=== PATIENT | male | born 1960 | race Caucasian/White ===

== ENCOUNTER 2017-12-12 20:02 | Emergency (ER) | payer BC ==
[2017-12-12 20:11] VITALS: BP 175/112; PULSE 97; RESP 20; TEMP 97.7
[2017-12-12] MEDS ORDERED: ORPHENADRINE 30 MG/ML 2 ML VIAL IM STA (20:28)
[2017-12-12] MEDS ORDERED: HYDROcodone/APAP 5-325MG 1 EACH TAB PO STA (20:28)
[2017-12-12] MEDS ORDERED: KETOROLAC 60 MG/2 ML VIAL IM STA (20:28)
--- NOTE | 2017-12-12 20:36 | ED ---
Back Pain HPI - General Chief Complaint: Back Pain/Injury Stated Complaint: back pain Time Seen by Provider: 12/12/17 20:14 Source: patient Limitations: no limitations - History of Present Illness Initial Comments: 57-year-old male patient presents to the emergency department today for evaluation of lower back pain and left flank pain. Patient states that he has been having trouble with his back for the last few months. States that he is doctor is treating him for a possible herniated disc and has ordered an MRI. Patient states that the MRI appointment is not until December 26. He is taking ibuprofen and prednisone without much relief. He states that the pain radiates into his buttocks and into his hips. He denies any numbness or tingling in his legs. Denies any saddle anesthesia. Denies any loss of bowel or bladder control. He states that the pain is so bad today that it is causing him to vomit. He denies any abdominal pain with this. Denies any chest pain or shortness of breath. Denies any cough or congestion. Patient denies any recent rash, fever, chills, shortness breath, diarrhea, constipation, dizziness, weakness, hematuria, dysuria, urinary urgency, urinary frequency, headache, visual changes, or any other complaints. - Related Data Home Medications Medication Instructions Recorded Confirmed Aspirin EC [Ecotrin Low Dose] 81 mg PO DAILY 09/15/17 09/15/17 Enalapril [Vasotec] 10 mg PO DAILY 09/15/17 09/15/17 Previous Rx's Medication Instructions Recorded Diazepam [Valium] 5 mg PO BID #6 tab 09/15/17 HYDROcodone/APAP 5-325MG [[place] 1 - 2 tab PO Q6HR PRN #14 tab 09/15/17 5-325] Hydrocodone/Acetaminophen [[place] 1 tab PO Q6HR PRN #20 tab 12/12/17 5-325] Allergies Allergy/AdvReac Type Severity Reaction Status Date / Time No Known Allergies Allergy Verified 12/12/17 20:11 Review of Systems ROS Statement: Those systems with pertinent positive or pertinent negative responses have been documented in the HPI. ROS Other: All systems not noted in ROS Statement are negative. Past Medical History Past Medical History: Hypertension History of Any Multi-Drug Resistant Organisms: None Reported Past Surgical History: Hernia Repair Additional Past Surgical History / Comment(s): nasal surgery Past Psychological History: No Psychological Hx Reported Smoking Status: Former smoker Past Alcohol Use History: Occasional Past Drug Use History: None Reported General Exam Limitations: no limitations General appearance: alert, in no apparent distress, other (This is a well- developed, well-nourished adult male patient in mild distress related to pain. Vital signs upon presentation are temperature 97.7F, pulse 97, respirations 20 , blood pressure 175/112, pulse ox 97% on room air.) Eye exam: Present: normal appearance, PERRL, EOMI. Absent: scleral icterus, conjunctival injection, periorbital swelling ENT exam: Present: normal exam, normal oropharynx, mucous membranes moist Respiratory exam: Present: normal lung sounds bilaterally. Absent: respiratory distress, wheezes, rales, rhonchi, stridor Cardiovascular Exam: Present: regular rate, normal rhythm, normal heart sounds. Absent: systolic murmur, diastolic murmur, rubs, gallop, clicks GI/Abdominal exam: Present: soft, normal bowel sounds. Absent: distended, tenderness, guarding, rebound, rigid Extremities exam: Present: normal inspection, full ROM, normal capillary refill. Absent: tenderness, pedal edema, joint swelling, calf tenderness Back exam: Present: normal inspection. Absent: tenderness, vertebral tenderness Neurological exam: Present: alert, oriented X3, CN II-XII intact Psychiatric exam: Present: normal affect, normal mood Skin exam: Present: warm, dry, intact, normal color. Absent: rash Course Vital Signs 12/12/17 20:07 Temperature 97.7 F Pulse Rate 97 Respiratory 20 Rate Blood Pressure 175/112 O2 Sat by Pulse 97 Oximetry Medical Decision Making - Medical Decision Making 57-year-old male patient presented to the emergency department today for evaluation of lower back pain. Patient states that he has been worsening over the last few weeks. He states he does follow with a back specialist and is most have an MRI. Physical examination is unremarkable. Patient is neurologically intact. He has no red flag symptoms. We did give him IM injections of pain medicine here and checked his urine to rule out evidence of kidney stone. Urinalysis was negative, no evidence of blood. Patient symptoms are improving prior to discharge. We will discharge to follow-up with his primary care physician as well as his back specialist as soon as possible. He is instructed to return here immediately for any new, worsening, or concerning symptoms. He verbalizes understanding and agrees this plan. - Lab Data Lab Results 12/12/17 Range/Units 21:06 Urine Color Light Yellow Urine Appearance Clear (Clear) Urine pH 5.5 (5.0-8.0) Ur Specific [place] 1.007 (1.001-1.035) Urine Protein Negative (Negative) Urine Glucose (UA) Negative (Negative) Urine Ketones Negative (Negative) Urine Blood Negative (Negative) Urine Nitrite Negative (Negative) Urine Bilirubin Negative (Negative) Urine Urobilinogen <2.0 (<2.0) mg/dL Ur Leukocyte Esterase Negative (Negative) Disposition Clinical Impression: Low back pain Disposition: HOME SELF-CARE Condition: Good Instructions: Acute Low Back Pain (ED) Additional Instructions: Take medications as directed. Apply warm heat to the low back 20 minutes at a time release 4 times daily. Follow-up with your Back Specialist as soon as possible. Return here immediately for any new, worsening, or concerning symptoms. Prescriptions: Hydrocodone/Acetaminophen [[place] 5-325] 1 tab PO Q6HR PRN #20 tab PRN Reason: Pain Referrals: Nonstaff,Physician [Primary Care Provider] - 1-2 days Time of Disposition: 21:27
[2017-12-12 21:19] LABS: Appearance,Urine Clear (Clear); Bilirubin,Urine Negative (Negative); Blood,Urine Negative (Negative); Color,Urine Light Yellow; Glucose,Urine (UA) Negative (Negative); Ketones,Urine Negative (Negative); Leukocyte Esterase,Urine Negative (Negative); Nitrite,Urine Negative (Negative); PH, Urine 5.5 (5.0-8.0); Protein,Urine Negative (Negative); Specific Gravity,Urine 1.007 (1.001-1.035); Urobilinogen,Urine <2.0 mg/dL (<2.0)
== END 2017-12-12 21:34 | disposition home or self-care (01) ==
LOC: EC 20:02
DX: M54.5 Low back pain (principal); R10.9 Unspecified abdominal pain; R11.10 Vomiting, unspecified; I10 Essential (primary) hypertension; Z87.891 Personal history of nicotine dependence; Z79.82 Long term (current) use of aspirin; Z79.899 Other long term (current) drug therapy
CPT/HCPCS: 81003; 99283; 96372 ×2; J2360; J1885

== ENCOUNTER → 2018-06-08 | Outpatient (CLI) | payer BC ==
--- NOTE | 2018-06-08 11:56 | CT ---
EXAMINATION TYPE: CT thoracic spine wo con DATE OF EXAM: 06/08/2018 COMPARISON: None HISTORY: Back pain post surgery in February. CT DLP: 1023 mGycm Automated exposure control for dose reduction was used. CT scan performed through the thoracic spine FINDINGS: Lack of intravenous contrast could compromise sensitivity. Postop changes are noted status post posterior fusion at T10-T12. There are cystic changes present al vinod the expected level of the posterior elements, right pedicle of T11. Question some local graft mat erial is present posteriorly along the course of the posterior fixation rods. There are susceptibilit y artifacts present due to the fixation hardware. Laminectomy change present at T11. Transpedicular s crews present at T12 and T10, no evident spinal stenosis. There is calcific or ossific density presen t along the posterior aspect at T11 and epidural region extending from posterior aspect of T10 to the inferior margin of the posterior aspect of T11 thought to cause some local mass effect on the anteri or aspect of the thecal sac, likely epidural in location, some calcification or ossification also pre sent along the disc space T10-11. Vertebral body alignment and bone mineralization maintained. Posterior to the T6-7 disc space there is also ossific density causing mass effect on the thecal sac, moderate spinal stenosis. Mild spinal curvature noted incidentally. Coronary artery calcification noted incidentally. IMPRESSION: POSTOP CHANGES DESCRIBED WITH ADDITIONAL FINDINGS ABOVE, EPIDURAL OSSIFICATION OR CALCIFICATION AT THE SURGICAL SITE WELL PROBABLE HYPERTROPHIC CHANGE AT THE POSTERIOR ASPECT OF THE DISC SPACE T6-7 POSSIBLY CAUSING SOME SPINAL STENOSIS AT THIS LEVEL. ADDITIONAL FINDINGS ABOVE.
== END | disposition home or self-care (01) ==
LOC: RADCTMAIN 08:16
PROVIDERS: ATTEND Orthopaedic Surgery Orthopaedic Surgery of the Spine
DX: M21.372 Foot drop, left foot (principal); M48.04 Spinal stenosis, thoracic region; Z98.890 Other specified postprocedural states
CPT/HCPCS: 72128

== ENCOUNTER → 2020-12-19 | Outpatient (CLI) | payer MEDICARE ==
--- NOTE | 2020-12-19 22:47 | MR ---
EXAMINATION TYPE: MR lumbar spine wo con DATE OF EXAM: 12/19/2020 COMPARISON: CT thoracic spine 06/08/2018 HISTORY: Reoccuring back pain for 2 years after T10-T12 fusion. TECHNIQUE: Multiplanar, multisequence images of the lumbar spine were acquired. L1-L2: Normal disc appearance without desiccation. No herniation, protrusion or disc bulging. No ca nal stenosis is present. Foramina are patent bilaterally. L2-L3: Normal disc appearance without desiccation. No herniation, protrusion or disc bulging. No ca nal stenosis is present. Foramina are patent bilaterally. L3-L4: A yellow ascitic thousand average 6 L4-L5: Posterior broad-based disc bulge contacts anterior thecal sac. Facet arthropathy with hypertro phy ligamentum flavum is present. Increased signal posterior aspect of the disc consistent with small annular tear. L5-S1: Minimal posterior disc bulge noted. There is facet arthropathy change. Lumbar segments are intact. No paraspinal masses are identified. Conus medullaris has a normal appe arance. Incidental note made of hardware at T10-T12 due to posterior fusion. Lumbar vertebral bodies show preserved height and alignment. There is multilevel spondylosis with endplate discogenic marrow signal change. Probable hemangioma present within the L5 vertebral body, L4 vertebral body. Loss of d isc height signal present intervertebral levels compatible disc desiccation and degenerative disc dis ease. No significant foraminal encroachment or spinal stenosis. IMPRESSION: Degenerative disc disease, facet arthropathy, postop changes, no significant spinal stenosis or signi ficant foraminal encroachment
== END ==
LOC: RADMRIMAIN 20:05
PROVIDERS: ATTEND Orthopaedic Surgery Orthopaedic Surgery of the Spine
DX: M51.36 Other intervertebral disc degeneration, lumbar region (principal)
CPT/HCPCS: 72148

== ENCOUNTER → 2021-02-13 | Outpatient (CLI) | payer MEDICARE ==
--- NOTE | 2021-02-14 02:50 | MR ---
EXAMINATION TYPE: MR thoracic spine wo/w con DATE OF EXAM: 02/13/2021 COMPARISON: None HISTORY: Mid and low back pain for 4 years. Back surgery 2018. CONTRAST: Standard multiplanar, multisequence MRI departmental protocol utilizing 9 mL intravenous Gadavist solo olinium contrast. The thoracic vertebra have normal alignment. There is posterior fusion surgery from T10 to T12 with m etal artifact. At T6-7 there is a posterior mild central and left sided thoracic disc herniation. The re is contact with the thoracic spinal cord. There is no significant spinal stenosis. Thoracic spinal cord has normal signal pattern. There is no edema. There is no evidence of thoracic paraspinal mass. The contrast images show no pathologic enhancement. I see no evidence of thoracic spinal stenosis. There is posterior small disc herniation at T10-11 elevating the posterior longitudinal ligament post erior to the T11 vertebral body. This measures 4 mm in thickness. No spinal stenosis seen at this lev el. IMPRESSION: Small posterior T6-7 thoracic disc herniation with mild impingement on the anterior surface of the th oracic spinal cord and posterior deflection. No edema seen in the cord. Small posterior T10-11 disc h erniation sequestered along the posterior aspect of the T11 vertebral body.
== END | disposition home or self-care (01) ==
LOC: RADMRIMAIN 16:47
PROVIDERS: ATTEND Orthopaedic Surgery Orthopaedic Surgery of the Spine
DX: M51.24 Other intervertebral disc displacement, thoracic region (principal)
CPT/HCPCS: 72157; A9585

== ENCOUNTER → 2023-07-01 | Outpatient (CLI) | payer MEDICARE ==
--- NOTE | 2023-07-01 18:06 | CA ---
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 Hx: Technical Quality: Fair Contrast 1: Total Dose (mL): Contrast 2: Total Dose (mL): MEASUREMENTS (Male / Female) Normal Values 2D ECHO LV Diastolic Diameter PLAX 4.9 cm 4.2 - 5.9 / 3.9 - 5.3 cm LV Systolic Diameter PLAX 3.8 cm IVS Diastolic Thickness 0.8 cm 0.6 - 1.0 / 0.6 - 0.9 cm LVPW Diastolic Thickness 1.0 cm 0.6 - 1.0 / 0.6 - 0.9 cm LV Relative Wall Thickness 0.4 LVOT Diameter 2.0 cm Ascending Aorta Diameter 2.8 cm M-MODE Aortic Root Diameter MM 2.5 cm LA Systolic Diameter MM 3.1 cm LA Ao Ratio MM 1.2 AV Cusp Separation MM 1.9 cm DOPPLER AV Peak Velocity 140.6 cm/s AV Peak Gradient 7.9 mmHg AV Mean Velocity 114.3 cm/s AV Mean Gradient 5.5 mmHg AV Velocity Time Integral 26.9 cm LVOT Peak Velocity 88.3 cm/s LVOT Peak Gradient 3.1 mmHg LVOT Velocity Time Integral 18.2 cm LVOT Stroke Volume 59.8 cm??? LVOT Stroke Volume Index 27.9 ml/m??? LVOT Cardiac Index 1962.8 cm???/min???m??? AV Area Cont Eq vti 2.2 cm??? AV Area Cont Eq pk 2.1 cm??? Mitral E Point Velocity 44.0 cm/s Mitral A Point Velocity 72.6 cm/s Mitral E to A Ratio 0.6 MV Deceleration Time 272.8 ms LV E' Lateral Velocity 6.5 cm/s Mitral E to LV E' Lateral Ratio 6.8 LV E' Septal Velocity 8.1 cm/s Mitral E to LV E' Septal Ratio 5.5 TR Peak Velocity 208.8 cm/s TR Peak Gradient 17.4 mmHg Right Atrial Pressure 3.0 mmHg Pulmonary Artery Systolic Pressu 20.4 mmHg Right Ventricular Systolic Press 20.4 mmHg FINDINGS Left Ventricle Left ventricular wall thickness normal. Left ventricular cavity size normal. normal left ventricular systolic function with no obvious regional wall motion abnormalities. Left ventricular ejection fraction is estimated at 55-60 %. Right Ventricle Normal right ventricular size. Right Atrium Normal right atrial size. Left Atrium Normal left atrial size. Mitral Valve Structurally normal mitral valve. Mild mitral regurgitation. Aortic Valve Calcified aortic valve cusps. No aortic regurgitation. Probable bicuspid aortic valve, not well visualized. Tricuspid Valve Structurally normal tricuspid valve. Trace tricuspid regurgitation. Pulmonic Valve Pulmonic valve not well visualized. Mild pulmonic regurgitation. Pericardium No pericardial effusion. Aorta Normal size aortic root and proximal ascending aorta. CONCLUSIONS 1. Normal left ventricle size and systolic function 2. Calcified aortic valve, probable bicuspid although not well visualized 3. Mild mitral regurgitation Previewed by: Dr. Nico Larson MD (Electronically Signed) Final Date: 01 July 2023 18:05
== END | disposition home or self-care (01) ==
LOC: RADECHMAIN 13:13
PROVIDERS: ATTEND Family Medicine
DX: Q23.8 Other congenital malformations of aortic and mitral valves (principal)
CPT/HCPCS: 93306

== ENCOUNTER → 2023-12-12 | Outpatient (CLI) | payer MEDICARE ==
--- NOTE | 2023-12-12 14:43 | CTL ---
EXAMINATION TYPE: CT Low Dose Lung DATE OF EXAM ORDERED: 12/12/2023 HISTORY: 63-year-old male with Z87.891, current smoker with 84 pack-year history. Lung cancer screeni ng CT DLP: 127.[address] CTDI: 3.1 mGy Automated exposure control for dose reduction was used. SCREENING VISIT: Annual follow-up COMPARISON: 12/09/2022 TECHNIQUE: Low dose computed tomography scan was performed through the chest with coronal and sagitta l reconstructions. CT DIAGNOSTIC QUALITY: Satisfactory FINDINGS: Heart is normal size without pericardial effusion. Proximal LAD coronary artery calcifications are pr esent. Aorta normal caliber with conventional arch vessel branching anatomy. No thoracic adenopathy by CT size criteria. Mild diffuse bronchial wall thickening. Bandlike scarring inferior lingula is unchanged. Additional m ild pleural-parenchymal scarring posterior upper lobes. Mild upper lung emphysematous change. No cons olidation or pleural effusion. * 4 mm lateral left basilar pulmonary nodule, axial image 234 is unchanged. * Some scattered calcified pleural plaques on the left are unchanged. Tiny hiatal hernia. Visualized upper abdomen otherwise shows no gross abnormality. Bones: Previous posterior lumbar fusion changes at T10-T12 with corresponding laminectomies. IMPRESSION: 1. Lung RADS 2, benign. Some scattered calcified pleural plaques on the left as well as a 4 mm left b asilar pulmonary nodule remain unchanged. 2. COPD with mild emphysema. Recommend smoking cessation. Scattered areas of scarring are unchanged. 3. Tiny hiatal hernia. CT LUNG RAD AND CT CHEST RECOMMENDATION: Lung-Rad 2 Benign Appearance or Behavior: Continue annual sc reening with LDCT in 12 months. S Modifier (other clinically significant findings): None
== END | disposition home or self-care (01) ==
LOC: RADCTMAIN 11:06
PROVIDERS: ATTEND Family Medicine
DX: Z12.2 Encounter for screening for malignant neoplasm of respiratory organs (principal); R91.1 Solitary pulmonary nodule; J43.9 Emphysema, unspecified; K44.9 Diaphragmatic hernia without obstruction or gangrene; Z87.891 Personal history of nicotine dependence
CPT/HCPCS: 71271

== ENCOUNTER → 2025-05-03 | Outpatient (CLI) | payer MEDICARE ==
--- NOTE | 2025-05-03 09:55 | CTL ---
EXAMINATION TYPE: CT Low Dose Lung DATE OF EXAM: 05/03/2025 9:13 AM COMPARISON: 12/12/2023. CLINICAL INDICATION: Male, 65 years old with history of Z12.2, F17.210 NICOTINE DEPENDENCE; Current s moker 1 ppd x 48 years, hx COPD CAD, history of tobacco use. TECHNIQUE: Multiple axial non-contrast scans were obtained from approximately the lung apices through the upper abdomen. Coronal and sagittal reformatted images were obtained. Low dose technique was uti lized. MIP were created on a separate workstation and submitted for review. CT DLP: 110.3 mGycm, Automated exposure control for dose reduction was used. CT Contrast: Contrast used: None Oral contrast used: None FINDINGS: Lack of intravenous contrast and low dose technique limits the evaluation of the vascular and soft ti ssue structures. LUNGS: No evidence of pulmonary fibrosis. No evidence of focal consolidation, pneumothorax or pleural effusion. Centrilobular emphysema changes. Scattered pleural calcifications. Nodules: RUL: None. RML: None. RLL: None. ANNETTE: None. LLL: 3 mm series 5 image 47, stable. AIRWAY: Patent and unremarkable. HEART: Size within normal limits. Mild coronary artery calcifications present. Thickening and calcif ication of aortic valve present. MEDIASTINUM: No gross evidence of adenopathy. VASCULATURE: No aortic aneurysm. MUSCULOSKELETAL: No acute osseous abnormalities postsurgical changes in the lower thoracic spine appe ar intact. SOFT TISSUES/LYMPH NODES: Unremarkable. LOWER NECK: No significant findings. UPPER ABDOMEN: No significant findings. IMPRESSION: 1. No clinically significant pulmonary nodules. 2. Pleural calcifications correlate for history is of asbestos exposure. 3. Mild emphysema. 4. Moderate coronary artery atherosclerosis. 5. Moderate aortic valve consultations. CT LUNG RAD AND CT CHEST RECOMMENDATION: Lung-Rad 2 Benign Appearance or Behavior: Continue annual sc reening with LDCT in 12 months. S Modifier (other clinically significant findings): None Recommend smoking cessation (if current smoker), or continuation of smoking cessation (if prior smoke r). Annual screening for lung cancer with low-dose computed tomography is recommended in adults ages 55 to 77 years who have a 30 pack-year smoking history and currently smoke or have quit within the pa st 15 years. Screening should be discontinued once a person has not smoked for 15 years or develops a health problem that substantially limits life expectancy or the ability or willingness to have curat fredy lung surgery. Lung rads 2021 [email or web address] [email or web address], , 05/03/2025 9:53 AM
== END | disposition home or self-care (01) ==
LOC: RADCTMAIN 08:28
PROVIDERS: ATTEND Family Medicine
DX: Z12.2 Encounter for screening for malignant neoplasm of respiratory organs (principal); F17.210 Nicotine dependence, cigarettes, uncomplicated; J43.2 Centrilobular emphysema; I25.10 Atherosclerotic heart disease of native coronary artery without angina pectoris; J94.8 Other specified pleural conditions
CPT/HCPCS: 71271